=== PATIENT | female | born 1975 | race Caucasian/White ===

== ENCOUNTER → 2016-06-05 | Outpatient (CLI) | payer OTHER ==
--- NOTE | 2016-06-05 13:25 | MM ---
Reason for exam: screening (asymptomatic). Baseline mammogram. Physical Findings: Nurse Summary: 0.5cm nodule in the left breast at 1 o'clock (nurse mireya). MG Screening Mammo w CAD Bilateral CC and MLO view(s) were taken. There are scattered fibroglandular densities. No suspicious calcifications are seen. There is no discrete abnormality including area of concern. ASSESSMENT: Incomplete: need additional imaging evaluation, BI-RAD 0 RECOMMENDATION: Ultrasound of the left breast. (Palpable) Manage patient on a clinical basis. If lesion persists on supplemental views, image directed ultrasound is recommended. [facility] will attempt to contact patient to return for supplemental views and ultrasound if indicated.
== END | disposition home or self-care (01) ==
LOC: RADMAMWWP 07:07
PROVIDERS: ATTEND Obstetrics & Gynecology
DX: Z12.31 Encounter for screening mammogram for malignant neoplasm of breast (principal)

== ENCOUNTER → 2016-06-18 | Outpatient (CLI) | payer OTHER ==
--- NOTE | 2016-06-18 09:36 | USB ---
Reason for exam: additional evaluation requested from abnormal screening. Physical Findings: Breast exam preformed at baseline screening. US Breast Workup Limited LT Left breast ultrasound demonstrates no cystic or solid lesion seen. These results were verbally communicated with the patient and result sheet given to the patient on 06/18/16. ASSESSMENT: Negative, BI-RAD 1 RECOMMENDATION: Return to routine screening mammogram schedule for both breasts. Manage patient on a clinical basis.
== END | disposition home or self-care (01) ==
LOC: RADUSWWP 08:57
PROVIDERS: ATTEND Obstetrics & Gynecology
DX: R92.8 Other abnormal and inconclusive findings on diagnostic imaging of breast (principal)

== ENCOUNTER → 2018-12-24 | Outpatient (CLI) | payer OTHER ==
[2018-12-24 10:34] LABS: HCT 46.5 % (34.0-46.0); HGB 15.3 gm/dL (11.4-16.0); MCHC 32.9 g/dL (31.0-37.0); MCV 94.2 fL (80.0-100.0); Mean Platelet Volume 7.1; Platelet Count 390 k/uL (150-450); RBC 4.94 m/uL (3.80-5.40); RDW 13.7 % (11.5-15.5); WBC 9.9 k/uL (3.8-10.6)
[2018-12-24 10:42] LABS: Appearance,Urine Clear (Clear); Bacteria,Urine Rare /hpf; Bilirubin,Urine Negative (Negative); Blood,Urine Moderate (Negative); Color,Urine Yellow; Glucose,Urine (UA) Negative (Negative); Hyaline Casts,Urine 7 /lpf (0-2); Ketones,Urine Negative (Negative); Leukocyte Esterase,Urine Trace (Negative); Mucus,Urine Many /hpf; Nitrite,Urine Negative (Negative); PH, Urine 5.5 (5.0-8.0); Protein,Urine Trace (Negative); RBC,Urine 16 /hpf (0-5); Specific Gravity,Urine 1.019 (1.001-1.035); Squamous Epithelial Cell,Urine 1 /hpf (0-4); Urobilinogen,Urine <2.0 mg/dL (<2.0); WBC,Urine 4 /hpf (0-5)
[2018-12-24 16:21] LABS: African American GFR (CKD) 103.9 (60.0-200.0); Albumin 4.4 g/dL (3.80-4.90); Albumin/Globulin Ratio 1.76 (1.60-3.17); BUN/Creat Ratio 12.5 Ratio (12.00-20.00); Calcium 9.8 mg/dL (8.7-10.3); Chol/HDL Ratio 6.15; Globulin 2.5 g/dL (1.6-3.3); LDL Cholesterol,Calculated 194.8 mg/dL (0.0-131.0); Potassium 4.7 mmol/L (3.5-5.5); Total Bilirubin 0.4 mg/dL (0.2-1.2); Total Protein 6.9 g/dL (6.2-8.2); VLDL Calculation 42.2 mg/dL (5.00-40.00)
[2018-12-24 17:50] LABS: Hemoglobin A1C 6.1 % (4.0-6.0)
== END | disposition home or self-care (01) ==
LOC: LABWHC1 09:55
PROVIDERS: ATTEND Family Medicine
DX: Z00.00 Encounter for general adult medical examination without abnormal findings (principal)
CPT/HCPCS: 36415; 80053; 80061; 81001; 83036; 84443; 85027

== ENCOUNTER → 2020-01-19 | Outpatient (CLI) | payer BC ==
[2020-01-19 10:20] LABS: HCT 46.1 % (34.0-46.0); HGB 14.7 gm/dL (11.4-16.0); MCH 30.4 pg (25.0-35.0); MCHC 31.9 g/dL (31.0-37.0); MCV 95.3 fL (80.0-100.0); Mean Platelet Volume 8.1; Platelet Count 381 k/uL (150-450); RBC 4.83 m/uL (3.80-5.40); RDW 13.3 % (11.5-15.5); WBC 9.6 k/uL (3.8-10.6)
[2020-01-19 17:22] LABS: Erythrocyte Sedimentation Rate 24 mm/Hr (0-20)
[2020-01-19 18:09] LABS: African American GFR (CKD) 103.2 (60.0-200.0); Albumin 4.3 g/dL (3.80-4.90); Albumin/Globulin Ratio 1.54 (1.60-3.17); Anion Gap 11.3 mmol/L (4.00-12.00); BUN/Creat Ratio 18.75 Ratio (12.00-20.00); Calcium 9.7 mg/dL (8.7-10.3); Carbon Dioxide 24.7 mmol/L (21.6-31.8); Chol/HDL Ratio 4.62; Globulin 2.8 g/dL (1.6-3.3); LDL Cholesterol,Calculated 175.8 mg/dL (0.0-131.0); Total Bilirubin 0.5 mg/dL (0.2-1.2); Total Protein 7.1 g/dL (6.2-8.2); VLDL Calculation 23.2 mg/dL (5.00-40.00)
[2020-01-19 18:58] LABS: Hemoglobin A1C 6.1 % (4.0-6.0)
== END | disposition home or self-care (01) ==
LOC: LABWHC1 08:22
PROVIDERS: ATTEND Family Medicine
DX: Z00.00 Encounter for general adult medical examination without abnormal findings (principal); R73.03 Prediabetes; M79.669 Pain in unspecified lower leg
CPT/HCPCS: 36415; 80053; 80061; 82306; 82550; 83036; 84443; 85027; 85652

== ENCOUNTER → 2020-04-09 | Outpatient (CLI) | payer BC | END | disposition home or self-care (01) | LOC: LABWHC1 15:10 | PROVIDERS: ATTEND Surgery | DX: Z20.828 Contact with and (suspected) exposure to other viral communicable diseases (principal) | CPT/HCPCS: U0003; C9803 ==

== ENCOUNTER 2020-04-17 11:04 | Day surgery (SDC) | payer BC ==
[2020-04-11 11:38] VITALS: BMI 40.9
[~2020-04-17 11:04] MED LIST: DEXAMETHASONE SOD PHOSPHATE 4 MG/ML 1 ML VIAL IV ONE; HYDROmorphone 0.5 MG/0.5 ML SYRINGE IVP PRN; LACTATED RINGERS 1,000 ML IV SCH; ONDANSETRON 4 MG/2 ML VIAL IVP ONE; Pre Op ABX Message 1 EACH MISC MISCELLANE ONE
[2020-04-17] MEDS ORDERED: HEPARIN SODIUM,PORCINE 5,000 UNIT/ML 1 ML VIAL ONE (11:29)
[2020-04-17] MEDS ORDERED: LIDOCAINE 1% (10MG/ML) FOR IV START INTRADERMA ONE (11:30)
[2020-04-17] MEDS ORDERED: SCOPOLAMINE 1.5MG/72HR PATCH TRANSDERM ONE (11:35)
[2020-04-17] MEDS ORDERED: SUCCINYLCHOLINE CHLORIDE VIAL 200 MG/10 ML VIAL IV ONE (12:53)
[2020-04-17] MEDS ORDERED: fentaNYL (PF) 50 MCG/ML 2 ML AMP ONE (12:53)
[2020-04-17] MEDS ORDERED: PROPOFOL 10 MG/ML 20 ML VIAL IV ONE (12:53)
[2020-04-17] MEDS ORDERED: HYDROmorphone (PF) 1 MG/ML ONE (12:53)
[2020-04-17] MEDS ORDERED: ALBUTEROL HFA INHALER INHALATION ONE (12:53)
[2020-04-17] MEDS ORDERED: MIDAZOLAM 2 MG/2 ML VIAL ONE (12:53)
[2020-04-17] MEDS ORDERED: LIDOCAINE 1% INJ 10MG/ML (20 ML MDV) ONE (12:53)
[2020-04-17] MEDS ORDERED: ROCURONIUM 10 MG/ML (10 ML VIAL) IV ONE (12:53)
[2020-04-17] MEDS ORDERED: NEOSTIGMINE 1 MG/ML 10 ML VIAL ONE (12:53)
[2020-04-17] MEDS ORDERED: KETOROLAC 15 MG/ML 1 ML VIAL ONE (12:53)
[2020-04-17] MEDS ORDERED: GLYCOPYRROLATE 0.2 MG/ML 2 ML VIAL ONE (12:53)
[2020-04-17] MEDS ORDERED: BUPIVACAINE (PF) 0.25% 30 ML VIAL SQ ONE ×2 (13:19)
[2020-04-17] MEDS ORDERED: LIDOCAINE 1%-EPI 1:100,000 20 ML VIAL SQ ONE ×2 (13:19)
--- NOTE | 2020-04-17 14:01 | P.OP ---
Date of Procedure: 04/17/20 Preoperative Diagnosis: Epigastric hernia Postoperative Diagnosis: Epigastric hernia Anesthesia: JF Surgeon: Razia Owens Estimated Blood Loss (ml): 5 Pathology: none sent Condition: stable Disposition: PACU Description of Procedure: The patient is a 44 year old female with a symptomatic epigastric hernia. No prior abdominal surgery. She is taken to the OR where she is prepped and draped in the usual sterile manner under general endotracheal anesthetic. Mild midline incision was made. The hernia sac is dissected free. The fascial edges are identified and the hernia contents are reduced. The preperitoneal space is then bluntly developed. The defect was about 5 x 6 cm. There is a small fascial bridge and then there is a 1 cm defect more inferior to this. Once adequate space was developed a 13.8 x 17.[address] hernia patch was placed. Keep good under coverage of all defects. It was sutured to the fascia peripherally and along the fascial edges using 0 Vicryl. The larger hernia defect is reapproximated with 3-0 Vicryl. The subcutaneous tissues are approximated with 0 Vicryl. The skin was closed with 4-0 Vicryl in a subcuticular manner. Steri- Strips and dressings were applied. She tolerated the procedure without difficulty and is taken to recovery room in satisfactory condition. According to or personnel, WERE correct. Plan - Discharge Summary Discharge Rx Participant: Yes New Discharge Prescriptions: New HYDROcodone/APAP 5-325MG [Hooven 5-325] 1 - 2 tab PO Q4H PRN #30 tab PRN Reason: Pain Naproxen 500 mg PO BID #60 tablet No Action rOPINIRole HCL [Requip] 2 mg PO HS Multivitamins, Thera [Multivitamin (formulary)] 1 tab PO DAILY Cholecalciferol [Vitamin D3 (25 Mcg = 1000 Iu)] 2,000 unit PO DAILY Acetaminophen Tab [Tylenol] 325 mg PO Q4H PRN PRN Reason: Pain Discharge Medication List Acetaminophen Tab [Tylenol] 325 mg PO Q4H PRN 04/11/20 [History] Cholecalciferol [Vitamin D3 (25 Mcg = 1000 Iu)] 2,000 unit PO DAILY 04/11/20 [History] Multivitamins, Thera [Multivitamin (formulary)] 1 tab PO DAILY 04/11/20 [History] rOPINIRole HCL [Requip] 2 mg PO HS 04/11/20 [History] HYDROcodone/APAP 5-325MG [Hooven 5-325] 1 - 2 tab PO Q4H PRN #30 tab 04/17/20 [Rx] Naproxen 500 mg PO BID #60 tablet 04/17/20 [Rx] Follow up Appointment(s)/Referral(s): Razia Owens DO [Doctor of Osteopathic Medicine] - 2 Weeks Activity/Diet/Wound Care/Special Instructions: Ice to the incision for 24-48 hours. Maintain the dressing until IV. The dressing may then be removed any may shower. Wear the abdominal binder for 2-4 weeks. Avoid lifting more than 1 gallon of milk(10 pounds). Take pain pills as needed. Do not take Tylenol along with the pain pills. Expect some bruising. Call if questions or concerns. Discharge Disposition: HOME SELF-CARE
[2020-04-17 14:02] VITALS: TEMP 99.2
[2020-04-17] MEDS ORDERED: HYDROcodone/APAP 5-325MG 1 EACH TAB ONE (15:07)
[2020-04-17] MEDS ORDERED: HYDROcodone/APAP 5-325MG 1 EACH TAB PO ONE (15:10)
[2020-04-17 16:02] VITALS: BP 95/58; PULSE 84; RESP 20
== END 2020-04-17 16:15 | disposition home or self-care (01) ==
LOC: OR 11:04
PROVIDERS: ATTEND Surgery
DX: K43.9 Ventral hernia without obstruction or gangrene (principal); E89.0 Postprocedural hypothyroidism; E04.9 Nontoxic goiter, unspecified; E78.00 Pure hypercholesterolemia, unspecified; G25.81 Restless legs syndrome; Z90.49 Acquired absence of other specified parts of digestive tract; Z86.39 Personal history of other endocrine, nutritional and metabolic disease; Z79.899 Other long term (current) drug therapy; Z88.8 Allergy status to other drugs, medicaments and biological substances; Z87.891 Personal history of nicotine dependence; Z91.89 Other specified personal risk factors, not elsewhere classified; Z87.898 Personal history of other specified conditions; Z80.41 Family history of malignant neoplasm of ovary; Z82.49 Family history of ischemic heart disease and other diseases of the circulatory system
CPT/HCPCS: 81025; 49570; C1781; J2250; J0330; J1644; J1100; J2710; J2405; J2001; J3010; J1170; J1885; J2704

== ENCOUNTER → 2021-09-25 | Outpatient (CLI) | payer BC | END | disposition home or self-care (01) | LOC: RADMAMWWP 13:35 | PROVIDERS: ATTEND Obstetrics & Gynecology | DX: Z12.31 Encounter for screening mammogram for malignant neoplasm of breast (principal) | CPT/HCPCS: 77067 ==

== ENCOUNTER → 2022-06-20 | Outpatient (CLI) | payer BC ==
[2022-06-20 17:33] LABS: Basophils # (A) 0.04 X 10*3/uL (0.00-0.10); Basophils % (A) 0.3 %; Eosinophils # (A) 0.16 X 10*3/uL (0.04-0.35); Eosinophils % (A) 1.1 %; HCT 48.6 % (37.2-46.3); HGB 15.6 g/dL (12.0-15.0); Immature Grans, Automated 0.2 %; Lymphocytes # (A) 1.91 X 10*3/uL (0.90-5.00); Lymphocytes % (A) 12.6 %; MCH 30.8 pg (27.0-32.0); MCHC 32.1 g/dL (32.0-37.0); MCV 95.9 fL (80.0-97.0); Mean Platelet Volume 11.1 fL (9.5-12.2); Monocytes # (A) 1.27 X 10*3/uL (0.20-1.00); Monocytes % (A) 8.4 %; NRBC Per 100 WBC 0 /100 WBCS (0.0-0.0); Neutrophils # (A) 11.71 X 10*3/uL (1.80-7.70); Neutrophils % (A) 77.4 %; Platelet Count 352 X 10*3/uL (140-440); RBC 5.07 X 10*6/uL (4.10-5.20); RDW 13.5 % (11.5-14.5); WBC 15.12 X 10*3/uL (4.50-10.00)
[2022-06-20 20:28] LABS: ALT 26 U/L (8-44); AST 20 U/L (13-35); African American GFR (CKD) 119.6 (60.0-200.0); BUN/Creat Ratio 19.03 Ratio (12.00-20.00); Blood Urea Nitrogen 13.3 mg/dL (9.0-27.0); Calcium 9.8 mg/dL (8.7-10.3); Carbon Dioxide 25.8 mmol/L (20.0-27.5); Chloride 103 mmol/L (96-109); Chol/HDL Ratio 4.71 Ratio; Glucose 110 mg/dL (70-110); Non-African American GFR(CKD) 103.2 (60.0-200.0); Potassium 4.8 mmol/L (3.5-5.5); Sodium 140 mmol/L (135-145)
== END | disposition home or self-care (01) ==
LOC: LABWHC1 09:28
PROVIDERS: ATTEND Family Medicine
DX: E78.5 Hyperlipidemia, unspecified (principal); E03.9 Hypothyroidism, unspecified; E55.9 Vitamin D deficiency, unspecified; R73.03 Prediabetes
CPT/HCPCS: 36415; 80048; 80061; 82306; 83036; 84439; 84443; 84450; 84460; 85025

== ENCOUNTER → 2022-07-18 | Outpatient (CLI) | payer BC ==
[2022-07-18 23:54] LABS: Basophils # (A) 0.05 X 10*3/uL (0.00-0.10); Basophils % (A) 0.6 %; Eosinophils # (A) 0.16 X 10*3/uL (0.04-0.35); Eosinophils % (A) 1.9 %; HCT 45.9 % (37.2-46.3); HGB 14.6 g/dL (12.0-15.0); Immature Grans, Automated 0.2 %; Lymphocytes # (A) 1.53 X 10*3/uL (0.90-5.00); Lymphocytes % (A) 18.3 %; MCH 30.5 pg (27.0-32.0); MCHC 31.8 g/dL (32.0-37.0); MCV 95.8 fL (80.0-97.0); Mean Platelet Volume 11.8 fL (9.5-12.2); Monocytes # (A) 0.88 X 10*3/uL (0.20-1.00); Monocytes % (A) 10.6 %; NRBC Per 100 WBC 0 /100 WBCS (0.0-0.0); Neutrophils % (A) 68.4 %; Platelet Count 340 X 10*3/uL (140-440); RBC 4.79 X 10*6/uL (4.10-5.20); RDW 13.2 % (11.5-14.5); WBC 8.34 X 10*3/uL (4.50-10.00)
[2022-07-19 08:00] LABS: African American GFR (CKD) 119.6 (60.0-200.0); Anion Gap 9.9 mmol/L (10.00-18.00); Carbon Dioxide 24.1 mmol/L (20.0-27.5); Non-African American GFR(CKD) 103.2 (60.0-200.0); Potassium 4.5 mmol/L (3.5-5.5)
== END | disposition home or self-care (01) ==
LOC: LABPAT 08:50
PROVIDERS: ATTEND Obstetrics & Gynecology
DX: Z01.812 Encounter for preprocedural laboratory examination (principal); N92.1 Excessive and frequent menstruation with irregular cycle
CPT/HCPCS: 80051; 82565; 82947; 84520; 85025; 87086

== ENCOUNTER 2022-07-27 07:15 | Day surgery (SDC) | payer BC ==
--- NOTE | 2022-07-17 07:40 | HP ---
HISTORY AND PHYSICAL SCHEDULED DATE OF SURGERY: 07/27/2022. HISTORY OF PRESENT ILLNESS: The patient is a 46-year-old 3, para 2-1-0-2, who presents to the office with significantly more irregular cycles over the last several years, which last at least 7 days at a time and occur at least once every 14 days, bleeding at least 50% of the time. She is passing large clots with the heavy bleeding. She has a tubal ligation in place and has already undergone an endometrial ablation in the past which has failed. She is not a candidate for oral contraceptive pills as she is a 1 [id number]-swg smoker which was discouraged as well. She requested definitive therapy with hysterectomy. She has a history of 3 previous sections and is only a candidate for open approach versus da Kirby approach. We have opted for da Kirby robotically-assisted laparoscopic hysterectomy. PAST MEDICAL HISTORY: Significant for history of fibromyalgia, goiter, psoriatic arthritis, and menorrhagia. PAST SURGICAL HISTORY: Significant for appendectomy, arthroscopy, section on 3 separate occasions, hemithyroidectomy, hernia surgery, hysteroscopy with ablation, and tubal ligation. There were no anesthetic concerns. OBSTETRICAL HISTORY: 3, para 2-1-0-2 with 2 term sections by a twin intrauterine loss secondary to [id number] transfusion at 24 weeks. Current method of contraception is tubal ligation. GYNECOLOGIC HISTORY: Unremarkable with no history of any infections to include STDs. FAMILY HISTORY: Noncontributory. SOCIAL HISTORY: The patient is and works for the [employer]. She is a 1 [id number] smoker. She denies any other significant social concerns to include alcohol. MEDICATIONS: Include: 1. Levothyroxine 0.088 mg daily. 2. Pravastatin 20 mg daily. 3. Requip daily. 4. Vitamin D daily. ALLERGIES: No known drug allergies. REVIEW OF SYSTEMS: Confined to history of present illness. PHYSICAL EXAMINATION: VITAL SIGNS: Stable, and the patient is afebrile. GENERAL: This is a well-developed, well-nourished white female, in no acute distress. HEART: Has regular rhythm and rate without murmur. LUNGS: Clear to auscultation bilaterally in all barth. ABDOMEN: Nondistended, has normoactive bowel sounds, soft, nontender, and without any palpable masses, hepatosplenomegaly, or hernias. EXTREMITIES: Without any cyanosis, clubbing, or edema and are nontender to palpation bilaterally. PELVIC: Demonstrates normal external genitalia and BUS with normal vaginal mucosa and cervix. There is no cervical motion tenderness. Uterus is 6 weeks in size, mid plane, mobile, nontender, and normal in shape. The adnexa are normal and nontender without any apparent masses bilaterally. ASSESSMENT AND PLAN: Menometrorrhagia: She has clearly failed endometrial ablation and has now requested definitive therapy which is particularly indicated as she is not a candidate for hormonal intervention. As a result, we have opted to proceed with da Kirby robotically- assisted laparoscopic hysterectomy, bilateral salpingectomy, with diagnostic cystoscopy. The risks and complications of these procedures have been thoroughly discussed including the risks for bleeding, bleeding requiring transfusion, infection, and injury to local structures to include the bowel, bladder, and ureters with special attention paid to the bladder given her history of previous section x3. We additionally discussed injury that is unique to da Kirby surgery to specifically include thermal injury and vaginal cuff dehiscence. She has understood all this and has agreed to proceed. She has been made aware of the typical hospital and postoperative courses as well. We are scheduled for the procedure as outlined above on the morning of July 27, 2022. MMODL / IJN: [id number] /
[~2022-07-27 07:15] MED LIST changes: +LIDOCAINE 1% (10MG/ML) FOR IV START INTRADERMA PRN; +MIDAZOLAM 2 MG/2 ML VIAL IV PRN; -Pre Op ABX Message 1 EACH MISC MISCELLANE ONE
[2022-07-27 07:48] LABS: Glucose,Whole Blood 129 mg/dL (70-110)
[2022-07-27] MEDS ORDERED: fentaNYL (PF) 50 MCG/ML 2 ML AMP ONE (08:58)
[2022-07-27] MEDS ORDERED: MORPHINE SULFATE (PF) 0.3 MG/0.3 ML SYR ONE (08:58)
[2022-07-27] MEDS ORDERED: ROCURONIUM 10 MG/ML (5 ML VIAL) IV ONE (08:58)
[2022-07-27] MEDS ORDERED: PROPOFOL 10 MG/ML 20 ML VIAL IV ONE (08:58)
[2022-07-27] MEDS ORDERED: SUCCINYLCHOLINE CHLORIDE 200 MG/10 ML VIAL IV ONE (08:58)
[2022-07-27] MEDS ORDERED: PHENYLEPHRINE-0.9% NACL SYG 1,000 MCG/10 ML SYRINGE ONE (08:58)
[2022-07-27] MEDS ORDERED: MIDAZOLAM 2 MG/2 ML VIAL ONE (08:58)
[2022-07-27] MEDS ORDERED: NEOSTIGMINE 1 MG/ML 10 ML VIAL ONE (08:58)
[2022-07-27] MEDS ORDERED: LIDOCAINE 2% INJ 20 MG/ML (2 ML VIAL) ONE (08:58)
[2022-07-27] MEDS ORDERED: GLYCOPYRROLATE 0.2 MG/ML 2 ML VIAL ONE (08:58)
[2022-07-27] MEDS ORDERED: BUPIVACAINE (PF) 0.25% 30 ML VIAL SQ ONE ×2 (09:57→11:17)
[2022-07-27] MEDS ORDERED: LACTATED RINGERS 1,000 ML IV ONE (10:46)
[2022-07-27] MEDS ORDERED: SIMETHICONE 80 MG CHEWABLE PO PRN (11:25)
[2022-07-27] MEDS ORDERED: Acetaminophen-Codeine 300-30mg TAB PO PRN ×2 (11:25)
[2022-07-27] MEDS ORDERED: diphenhydrAMINE 50 MG/ML 1 ML VIAL IVP PRN (11:25)
[2022-07-27] MEDS ORDERED: METOCLOPRAMIDE 5 MG/ML 2 ML VIAL IVP PRN (11:25)
[2022-07-27] MEDS ORDERED: IBUPROFEN 600 MG TAB PO PRN (11:25)
[2022-07-27] MEDS ORDERED: ONDANSETRON 4 MG/2 ML VIAL IVP PRN (11:25)
--- NOTE | 2022-07-27 11:42 | P.OP ---
Date of Procedure: 07/27/22 Preoperative Diagnosis: #1. Menometrorrhagia #2. Failed endometrial ablation Postoperative Diagnosis: same plus #3. Extensive abdominopelvic adhesive disease Procedure(s) Performed: #1. Extensive adhesiolysis #2. Da Kirby robotically assisted laparoscopic hysterectomy with bilateral salpingectomy #3. Diagnostic cystoscopy Anesthesia: JF Surgeon: Deny Vera Project Manager Industrial #1: Payal Martinez Estimated Blood Loss (ml): 100 IV fluids (ml): 700 Urine output (ml): 300 Pathology: other (uterus and bilateral fallopian tubes) Condition: stable Disposition: PACU Operative Findings: preoperative pelvic examination demonstrated a roughly 5 week anteverted mobile normal shaped uterus with normal adnexa bilaterally. Intraoperatively, the first thing of note was extensive omental adhesions to the anterior abdominal wall from below the umbilicus to above it and bilaterally. These were ultimately able to be safely lysed using multiple different ports for visualization and lysis of adhesions using the LigaSure device. In the pelvis, the uterus appeared to be somewhat bulky and likely consistent with adenomyosis. There was bilateral evidence of tubal ligation with segments of the tubes missing on both sides. The ovaries were entirely normal to inspection. There was additional adhesive disease in the pelvis to include the cul-de-sac and the bladder was densely adherent to the anterior aspect of the uterus across its entire width. All of these were safely taken down as well. At cystoscopy, the dome of the bladder was clear and without damage and the bilateral ureters were seen peristalsing. Description of Procedure: the patient was prepped and draped in usual fashion after general endotracheal anesthesia was administered by the anesthesiologist. A weighted speculum was placed and the anterior lip of the cervix grasped with a single-tooth tenaculum. The uterus was sounded to approximate 7-8 cm. Serial dilation was carried out to admit a V-care uterine manipulator which was affixed to the cervix in standard fashion. A Peraza catheter was in place. Attention was then turned to the abdomen where a site was selected approximately 4-5 cm above the umbilicus secondary to the patient's short waist and the mobility of the uterus. An 8 mm incision was made in the transverse plane allowing insertion of an 8 mm da Kirby optical port under direct visualization without difficulty. A pneumoperitoneum was instilled and extensive adhesions were noted as above. After exploration of the pelvis, decision was made to place the right lower quadrant port approximately 10-12 cm lateral and 4-5 cm inferior to the optical port where it could be clearly seen entering the abdomen. A blunt manipulator was then utilized to remove some of the adhesions from the left side which was more extensive allowing insertion of the left lower quadrant port slightly lower than the right lower quadrant port but equally lateral under direct visualization without difficulty. By placing the scope in the right lower quadrant port and using a LigaSure device through the optical port, a good portion of the left lower quadrant adhesions were removed at or near the abdominal wall. The scope was then switched to the left lower quadrant port and the LigaSure device placed through the right lower quadrant port. This allowed for lysis of the vast majority of the remaining adhesions and a clear view of the pelvis and instrumentation needed. At this point, the da Kirby ports were placed in their proper orientation and the robot docked to the patient. The left arm was loaded with a [place] bipolar cautery forceps and the right arm loaded with a monopolar cautery scissors. Prior to docking of the robot, a site was selected approximately equal with the optical port in the left upper quadrant where a 10 mm incision was made in the transverse plane allowing insertion of a 10 mm assistant professor of radiology port under direct visualization without difficulty. I presented to the console at which time the left fallopian tube was elevated and removed to its point where a portion or segment of tube was missing. The portion of tube was removed through the assistance port and cath to be sent with the entire specimen. The remainder of the fallopian tube was dissected to the uterus at which time the utero-ovarian ligament was cauterized thoroughly and cut. The cautery followed by cutting was carried through the round ligament on this side. There was extensive adhesions of the bladder of very high on the uterus. The bladder peritoneum was dissected very carefully at its origin on the uterus and ultimately reflected adequately distally to allow further skeletonization of the uterine vasculature. Once the vessels were identified, they were cauterized with the [place] bipolar cautery forceps and then cut with the monopolar cautery scissors. The dissection of the bladder flap was carried across approximately half of the uterus. Attention was then turned to the right side where similar operations were carried out including removal of the first portion of tube through the assistance port. There was a fairly dense adhesion in the posterior cul-de-sac just above the level of the uterosacral ligament which was dissected with cautery as needed. The bladder peritoneum was then again carefully and exhaustively dissected with the monopolar cautery scissors and ultimately reflected distally safely. The typical plane of the fascia was noted across the entire anterior portion. Once the uterine vasculature had been secured with cautery and then cut, the cervical cup was identified anteriorly and opened sharply with the cautery scissors. The cup was followed circumferentially around the entire cervix until the specimen was from the patient and then removed into the vagina. Urine remained clear throughout the entire procedure. The scissors were replaced with a laparoscopic suturing device and a stitch of 0 Stratafix was passed into the abdomen. The stitch was utilized to secure the cuff from the right angle to the left angle in standard fashion without difficulty using large secure bites. Hemostasis appeared to be excellent. I then returned to the patient while the robot was been undocked, removed the Peraza catheter, and placed a diagnostic cystoscope into the bladder which was distended with sterile water. The dome of the bladder was inspected and found to have no damage. Each of the ureteral LX were identified and noted to be peristalsing normally. The scope was then removed and the Peraza catheter replaced. The abdominal incisions were closed with interrupted subcuticular stitches of 4-0 Vicryl followed by half-inch Steri-Strips placed with Mastisol. A total of 10 mL of half percent Marcaine without epinephrine were infused equally among the 4 incisions. Estimated blood loss for the case was approximately 100 mL. There were no complications. All sponge, instrument, and needle counts were correct. The patient tolerated the procedure well and proceeded to the recovery room in stable condition.
--- NOTE | 2022-07-27 12:25 | P.ANPRN ---
Procedure Note - Anesthesia - Epidural/Spinal Spinal Time Out Performed: Yes Date of Procedure: 07/27/22 Procedure Start Time: :18 Procedure Stop Time: :24 Location of Patient: PreOp Indication: Acute Post-Operative Pain, Requested by Surgeon Sedation Type: Sedate with meaningful contact maintained Preparation: Sterile Prep Position: Sitting Needle Guage: 25 Blood Aspirated: No Pain Paresthesia on Injection Noted: No Events: Uneventful and Well Tolerated (Fentanyl 25 mics plus Duramorph 300 mics given intrathecally)
[2022-07-27 13:49] VITALS: RESP 16
[2022-07-27] MEDS: KETOROLAC 15 MG/ML 1 ML VIAL IVP PRN ×2 (15:01→20:57)
[2022-07-27] MEDS: LACTATED RINGERS 1,000 ML IV SCH (20:58)
[2022-07-27] MEDS ORDERED: SENNOSIDES-DOCUSATE SODIUM 1 EACH TAB PO SCH (21:00)
[2022-07-28] MEDS: LACTATED RINGERS 1,000 ML IV SCH (01:29)
[2022-07-28] MEDS: KETOROLAC 15 MG/ML 1 ML VIAL IVP PRN (03:39)
[2022-07-28 05:36] LABS: Basophils % (A) 0 %; Eosinophils # (A) 0.1 k/uL (0-0.7); Eosinophils % (A) 1 %; HCT 40.4 % (34.0-46.0); Lymphocytes # (A) 2.2 k/uL (1.0-4.8); Lymphocytes % (A) 15 %; MCHC 32.1 g/dL (31.0-37.0); MCV 96.5 fL (80.0-100.0); Monocytes # (A) 0.9 k/uL (0-1.0); Monocytes % (A) 6 %; Neutrophils # (A) 10.8 k/uL (1.3-7.7); Neutrophils % (A) 77 %; Platelet Count 342 k/uL (150-450); RBC 4.18 m/uL (3.80-5.40); RDW 12.6 % (11.5-15.5); WBC 14.1 k/uL (3.8-10.6)
--- NOTE | 2022-07-28 06:31 | P.PN ---
Progress Note - Text Date: 07/28/2022 Time: 06:05 The patient is status post, robotic hysterectomy. Vital signs stable VAS:[0-10] Patient has no complaints of pain. The patient incurred some minimal itching yesterday, this itching is now subsiding. Pain meds to be managed by service.
[2022-07-28 08:30] VITALS: BP 88/60; PULSE 98; TEMP 98.4
--- NOTE | 2022-07-28 09:58 | P.DS ---
Providers Expected date of discharge: 07/28/22 Attending physician: Deny Vera Primary care physician: Pankaj Forbes - Discharge Diagnosis(es) (1) Menometrorrhagia Current Visit: Yes Status: Acute Hospital Course: the patient is a 46-year-old 3 para 05/06/2002 presents the office with significantly increasing irregular cycles over the last several years. She has previously undergone an endometrial ablation and is currently bleeding at least 7 out of every 14 days. She additionally reports that the bleeding is heavy at times. She has a tubal ligation in place and, as noted, has failed endometrial ablation. She is not a candidate for oral contraceptives as she is a smoker and requested definitive therapy. Given her history of 3 previous sections, da Kirby open approach of the only reasonable options. She was taken the operating room where she underwent da Kirby robotically assisted laparoscopic hysterectomy with bilateral salpingectomy and additionally required significant intraoperative adhesio lysis as a result significant amount of omental adhesions to the anterior abdominal wall. She then also had diagnostic cystoscopy. All these procedures were accomplished an incompetent fashion. Her postoperative course was unremarkable with vital signs remained stable and her temperature was afebrile throughout. She was tolerating regular diet by the morning of postoperative day #1 and pain was fairly minimal. She was deemed stable for discharge and was discharged home to follow-up in the office in 2 weeks for recheck and 8 weeks routinely. Discharge instructions included calling for any significantly increased fever or abdominal pain, incisional concerns, GI concerns, bladder issues, or anything else that concerned her. she was additionally and more poorly instructed to have nothing in the vagina for at least 8 weeks time to include intercourse. She understood all of her instructions and agrees follow up as noted above. Discharge medications included any normal home medications as well as a prescription for Tylenol 3, 1- 2 by mouth every 6 hours when necessary pain, #20 dispensed with no refills. She was otherwise to use [id number] analgesic pain medications as needed. Discharge hemoglobin and hematocrit were 13.0 and 40.4 respectively. Procedures: #1. Laparoscopic lysis of adhesions #2. Da Kirby robotically assisted laparoscopic hysterectomy with bilateral salpingectomy #3. Diagnostic cystoscopy Patient Condition at Discharge: Stable Plan - Discharge Summary Discharge Rx Participant: No New Discharge Prescriptions: No Action rOPINIRole HCL [Requip] 2 mg PO HS Multivitamins, Thera [Multivitamin (formulary)] 1 tab PO DAILY Acetaminophen Tab [Tylenol] 325 mg PO Q4H PRN PRN Reason: Pain Ergocalciferol [Vitamin D2 (1250 Mcg = 16246 Iu)] 1,250 mcg PO TU Pravastatin Sodium [Pravachol] 40 mg PO HS Levothyroxine Sodium 88 mcg PO DAILY Discharge Medication List Acetaminophen Tab [Tylenol] 325 mg PO Q4H PRN 04/11/20 [History] Multivitamins, Thera [Multivitamin (formulary)] 1 tab PO DAILY 04/11/20 [History] rOPINIRole HCL [Requip] 2 mg PO HS 04/11/20 [History] Ergocalciferol [Vitamin D2 (1250 Mcg = 33564 Iu)] 1,250 mcg PO TU 07/16/22 [History] Levothyroxine Sodium 88 mcg PO DAILY 07/16/22 [History] Pravastatin Sodium [Pravachol] 40 mg PO HS 07/16/22 [History] Follow up Appointment(s)/Referral(s): Deny Vera MD [STAFF PHYSICIAN] - 2 Weeks Discharge Disposition: HOME SELF-CARE
[2022-07-28] MEDS ORDERED: ACETAMINOPHEN TAB 325 MG TAB PO PRN (11:27)
== END 2022-07-28 11:00 | disposition home or self-care (01) ==
LOC: OR 07:15 → 4FBP 11:30 → OR 07-28 11:00
PROVIDERS: ATTEND Obstetrics & Gynecology
DX: D25.1 Intramural leiomyoma of uterus (principal); N80.03 Adenomyosis of the uterus; M79.7 Fibromyalgia; L40.50 Arthropathic psoriasis, unspecified; E04.9 Nontoxic goiter, unspecified; Z90.49 Acquired absence of other specified parts of digestive tract; Z98.891 History of uterine scar from previous surgery; Z90.710 Acquired absence of both cervix and uterus; Z98.51 Tubal ligation status; Z79.899 Other long term (current) drug therapy; Z79.890 Hormone replacement therapy
CPT/HCPCS: 52000; 58571; S2900; 81025; 85025; 86850; 86900; 86901; 88307

== ENCOUNTER → 2023-12-27 | Outpatient (CLI) | payer BC ==
--- NOTE | 2024-01-03 12:55 | MM ---
Reason for Exam: Screening (asymptomatic). Last screening mammogram was performed 12 month(s) ago. Patient History: Menarche at age 11. First Full-Term at age 27. Hysterectomy at age 46. Risk Values: Mary 5 year model risk: 1.0%. NCI Lifetime model risk: 10.0%. Prior Study Comparison: 06/05/2016 Bilateral Screening Mammogram, [facility]. 09/25/2021 Bilateral MG screening mammo w CAD, [facility]. 12/25/2022 Bilateral MG screening mammo w CAD, [facility]. Tissue Density: There are scattered areas of fibroglandular density. Findings: Analyzed By CAD. There is no suspicious group of microcalcifications or new suspicious mass in either breast. Overall Assessment: Negative, BI-RAD 1 Management: Screening Mammogram of both breasts in 1 year. . Patient should continue monthly self-breast exams. A clinical breast exam by your physician is recommended on an annual basis. This exam should not preclude additional follow-up of suspicious palpable abnormalities. Note on Mary scores and lifetime risk: 1. A Mary score greater than 3% is considered moderate risk. If this is the case, consider specialist referral to assess eligibility for a risk reducing agent. 2. If overall lifetime risk for the development of breast cancer is 20% or higher, the patient may qualify for future screening with alternating mammogram and breast MRI. [facility], , 01/03/2024 12:52 PM. Electronically signed and approved by: Ernie Thakkar M.D. Radiologis
== END | disposition home or self-care (01) ==
LOC: RADMAMWWP 09:29
PROVIDERS: ATTEND Family Medicine
DX: Z12.31 Encounter for screening mammogram for malignant neoplasm of breast
CPT/HCPCS: 77063; 77067